=== PATIENT | male | born 1950 | race Caucasian/White ===

== ENCOUNTER → 2020-08-27 13:49 | Outpatient (BNVA) | payer OTHER, SELFPAY | PROVIDERS: Family Provider Family Medicine; PCP Emergency Medicine Emergency Medical Services; Referring Provider Emergency Medicine Emergency Medical Services; Visit Provider Specialist | DX: M25.511 Pain in right shoulder (principal) | CPT/HCPCS: 73030 ==

== ENCOUNTER 2021-05-05 12:34 | Observation (INO) | payer OTHER, MEDICARE, SELFPAY ==
[2021-05-05 13:41] VITALS: BP 123/81; PULSE 89; RESP 18; TEMP 37.1; O2SAT 98; BMI 37.5
--- NOTE | 2021-05-05 14:09 | W.ED.NEUROSD ---
HPI - Neuro Symptoms/Deficit General: Chief Complaint: Neuro Symptoms/Deficit Stated Complaint: STROKE LIKE SYMPTOMS/ EXPRESSIVE APHASIA Time Seen by Provider: 05/05/21 13:04 History of Present Illness: HPI Narrative: 7-year-old male was transferred here from [facility]. He had presented there with expressive aphasia. He was evaluated by CT CT of the head and neck there is no acute findings noted he gone to bed the night before around 8 PM woke up at 5 AM with the expressive aphasia improved shortly after presented there. Neuro consult by [place] consultation recommended hospitalization for further evaluation for his stroke there is an incidental finding of a mediastinal mass. The difficult time securing an appropriate hospital bed and ultimately contacted our facility we have excepted the patient for admission. Records did accompany him and were reviewed labs and imaging was not repeated was reviewed in the chart. [place] per the radiologist recommendation the patient was given 325 mg of aspirin and 300 mg of Plavix as a loading doses. Onset (ago): hour(s) Last Observed Normal: 22:00 Timing confirmed by: family member Location: speech History of same: No Severity: moderate Relieving factors: none Exacerbating factors: none Context: sudden onset (Patient awoke with symptoms) Associated symptoms: Deny chest pain, cough, diaphoresis, fevers/chills, headache(s), anorexia, malaise, nausea, seizures, short of breath, syncope, tingling, vertigo, vomiting or weakness Treatments Prior to Arrival: Aspirin (325 mg) and other medication (Plavix 300) Review of Systems Const: Denies: malaise or diaphoresis ENMT: Denies: throat pain, ear or mastoid pain, nasal discharge or nasal congestion Card: Denies: chest pain or syncope Resp: Denies: dyspnea, productive cough or non-productive cough GI: Denies: nausea or vomiting : Denies: flank pain, dysuria, urinary frequency or urinary urgency Skin/Breast: Denies: rash or pruritus Neuro: Denies: headache(s) or vertigo PFSH ED PFSH: Social History Smoking and tobacco status: never smoked NIH stroke score NIHSS: Level Of Consciousness - 1a: 0 Level Of Consciousness Questions - 1b: Both Correct Level Of Consciousness Commands - 1c: Both Correct Best Gaze - 2: Normal Visual Pratt - 3: No Visual Loss Facial Palsy - 4: Normal Motor Arm Right - 5: No Drift Motor Arm Left - 5: No Drift Motor Leg Right - 6: No Drift Motor Leg Left - 6: No Drift Limb Ataxia - 7: Absent Sensory - 8: Normal Best Language - 9: Mild/Moderate Aphasia (Expressive) Dysarthia - 10: Normal Extinction And Inattention - 11: 0 Score: Total Score: 1 Physical Exam Const: COMMON NORMALS: no acute distress GENERAL APPEARANCE: cooperative and comfortable ORIENTATION/CONSCIOUSNESS: Yes awake, Yes oriented to person, Yes oriented to place and Yes oriented to time HENMT: COMMON NORMALS: normocephalic, atraumatic and hearing grossly normal bilaterally HEAD & SCALP: normocephalic and atraumatic Neck/C-Spine: COMMON NORMALS: no JVD Resp: COMMON NORMALS: normal respiratory effort, No retractions, No use of accessory muscles and clear to auscultation bilaterally AUSCULTATION: clear to auscultation bilaterally Cardio: COMMON NORMALS: no JVD, regular rate, regular rhythm and No murmurs present (Cardio) RATE: regular rate RHYTHM: regular rhythm GI: COMMON NORMALS: Soft to palpation and No hepatosplenomegaly present AUSCULTATION: Yes normoactive bowel sounds PALPATION: Yes Soft to palpation, No Tenderness to palpation present (GI), No Guarding due to palpation present (GI) and Yes No hepatosplenomegaly present Extremity: COMMON NORMALS: normal to inspection, capillary refill normal, no clubbing, cyanosis or edema, no calf tenderness and no pedal edema Neuro: SENSORIUM/ORIENTATION: Yes oriented to person, Yes oriented to place and Yes oriented to time Skin: COMMON NORMALS: no rashes or lesions noted GENERAL SKIN EXAM: no rashes or lesions noted Course Vital Signs: Vital signs: Vital Signs Temperature 98.7 F 05/05/21 13:41 Pulse Rate 89 05/05/21 13:41 Respiratory Rate 18 05/05/21 13:41 Blood Pressure 123/81 05/05/21 13:41 Pulse Oximetry 98 05/05/21 13:41 MDM - Neuro Symptoms/Deficit MDM Narrative: Medical decision making narrative: Labs and imaging reviewed from outside facility. Discussed Dr. Newberry will admit. Discharge Plan Discharge Patient Disposition: Admitted As Inpatient Clinical Impression: Cerebrovascular accident, Mass of mediastinum Condition: Stable Coding Level of Care Code ED Fabric Finisher for Katarina Cervantes
[2021-05-05 17:00] VITALS: BP 134/79; PULSE 74; RESP 18; O2SAT 98
--- NOTE | 2021-05-05 18:00 | P.HP_ITS ---
Providers/Chief Complaint Admitting Physician: Carmleo Newberry MD Primary Care Provider: Ray Haywood DO Chief Complaint: STROKE LIKE SYMPTOMS/ EXPRESSIVE APHASIA History of Present Illness Tomy Zeng is a 70 year old male with past medical history of hypertension, coronary artery disease status post SC was transferred here from [facility]. He had presented there with expressive aphasia.He has gone to bed the night before around 8 PM woke up at 5 AM with the expressive aphasia. CT head without contrast: No acute intracranial pathology CT of the head and neck: No acute findings. Neuro consult by the [place] physician recommended hospitalization for further evaluation for his stroke. There is an incidental finding of a mediastinal mass. He received 325 mg of aspirin and 300 mg of Plavix at [facility].He was transferred to our facility for further work-up as there was no bed available. Review of Systems Const: Denies: fever(s), chills, body aches, change in appetite or diaphoresis Card: Denies: palpitations, edema, swelling of feet/ankles, dyspnea on exertion, orthopnea or leg pain with exertion Resp: Denies: dyspnea, productive cough, wheezing or pain on inspiration GI: Denies: abdominal pain, nausea, vomiting, diarrhea or constipation : Denies: flank pain or difficulty urinating Musc: Denies: back pain, extremity pain or extremity swelling Neuro: Denies: difficulty walking or confusion Medications/Allergies Home Medications Medication Instructions Recorded Confirmed Last Taken Type aspirin 81 mg tablet,delayed 81 mg PO QAM 08/27/20 05/05/21 Unknown History release lisinopril 10 mg PO QAM 05/05/21 05/05/21 Unknown History Allergies Allergy/AdvReac Type Severity Reaction Status Date / Time Penicillins Allergy hives Verified 05/05/21 13:49 PFSH Acute PFSH: Social History Smoking and tobacco status: never smoked Vitals/I&O/Wt Last Vital Signs Temp 98.7 F 05/05/21 13:41 Pulse 89 05/05/21 13:41 Resp 18 05/05/21 13:41 BP 123/81 05/05/21 13:41 Pulse Ox 98 05/05/21 13:41 Weight last 48 hrs Weight 122.016 kg Physical Exam Const: COMMON NORMALS: patient oriented x3 HENMT: COMMON NORMALS: normocephalic and atraumatic HEAD & SCALP: normocephalic and atraumatic Resp: COMMON NORMALS: clear to auscultation bilaterally AUSCULTATION: clear to auscultation bilaterally Cardio: COMMON NORMALS: regular rate, regular rhythm, S1 normal heart sound present, S2 normal heart sound present, No gallops present (Cardio), No murmurs present (Cardio), No rub (Cardio) and Peripheral pulses 2+ throughout RATE: regular rate RHYTHM: regular rhythm HEART SOUNDS: S1 normal heart sound present and S2 normal heart sound present PERIPHERAL PULSES: Peripheral pulses 2+ throughout GI: COMMON NORMALS: Normal to inspection, nondistended, normoactive bowel sounds present, Soft to palpation, non-tender, No hepatosplenomegaly present and no masses AUSCULTATION: Yes normoactive bowel sounds PALPATION: Yes Soft to palpation and Yes No hepatosplenomegaly present RECTAL EXAM: Yes deferred Extremity: COMMON NORMALS: no clubbing, cyanosis or edema and no pedal edema Neuro: COMMON NORMALS: patient oriented x3 A&P Assessment and plan (1) Cerebrovascular accident: Status: Acute (2) Mass of mediastinum: Status: Acute (3) Hypertension: Status: Acute Additional A&P Information Tomy Zeng is a 70 year old male with past medical history of hypertension, coronary artery disease status post SC was transferred here from [facility]. He had presented there with expressive aphasia.He has gone to bed the night before around 8 PM woke up at 5 AM with the expressive aphasia. CT head without contrast: No acute intracranial pathology CT of the head and neck: No acute findings. Acute CVA: With expressive aphasia Neuro check Fall precaution Telemetry monitoring 2D echo MRI head without contrast Continue aspirin Plavix and statin Permissive hypertension Possible event monitor as an outpatient #Mediastinal mass: Patient denies any smoking history. Follow-up as an outpatient with pulmonary medicine #History of coronary artery disease status post SC: Currently denies any chest pain palpitation shortness of breath. Continue aspirin, Plavix and statin Attestations Medical Necessity Statement*: Patient needs to be in hospital for management o f acute CVA. Coding Level of Care Code Acute Licensed Social Worker for [facility] Diagnoses Cerebrovascular accident I63.9 Mass of mediastinum J98.59 Hypertension I10
[2021-05-05 18:22] VITALS: BMI 37.5
[2021-05-05] MEDS: sodium chloride 0.9% 1,000 ML 100 ML IV (18:35)
[2021-05-05] MEDS: acetaminophen 325 mg Tablet 650 MG PO (18:35)
[2021-05-05] MEDS: aspirin 81 mg EC Tablet PO (18:35)
[2021-05-05] MEDS: clopidogrel 75 mg Tablet PO (18:35)
[2021-05-05 19:27] LABS: Basophils % 0.4 %; Eosinophils # 0.1 10^3/uL (0.0-0.8); Eosinophils % 0.5 %; Hematocrit 46.1 % (42.0-52.0); Hemoglobin 14.3 g/dL (11.7-16.6); Lymphocytes # 2.8 10^3/uL (0.8-4.8); Lymphocytes % 25.3 %; Mean Corpuscular Hemoglobin 28.1 pg (28.0-34.0); Mean Corpuscular Volume 90.7 fl (80-94); Mean Platelet Volume 10.4 fL (7.4-10.4); Monocytes # 0.6 10^3/uL (0.2-0.9); Monocytes % 5.9 %; Neutrophils % 67.6 %; Nucleated Red Blood Cells % 0 %; Platelet Count 279 10^3/cmm (130-400); Red Blood Count 5.08 10^6/uL (4.1-5.3); Red Cell Distribution Width 13.7 % (12.1-15.1); White Blood Count 10.9 10^3/uL (4.0-10.0)
--- NOTE | 2021-05-05 19:57 | PC.NURSE ---
Shift report received from Roberta ARIAS. Patient in bed/resting. No s/s of pain or discomfort. IV patent /infusing NS at 100mL/hr. No needs noted at this time.
[2021-05-05 20:00] VITALS: BP 116/65; PULSE 86; RESP 17; TEMP 36.6; O2SAT 96
[2021-05-05] MEDS: atorvastatin 40 mg Tablet PO (22:30)
[2021-05-06] VITALS: BP 96/59; PULSE 88; RESP 19; TEMP 36.6; O2SAT 96
[2021-05-06 04:00] VITALS: BP 134/65; PULSE 70; RESP 18; TEMP 36.6; O2SAT 93
[2021-05-06 04:18] LABS: Basophils % 0.3 %; Eosinophils # 0.1 10^3/uL (0.0-0.8); Eosinophils % 1.1 %; Hematocrit 42.9 % (42.0-52.0); Hemoglobin 13.6 g/dL (11.7-16.6); Lymphocytes # 2.8 10^3/uL (0.8-4.8); Lymphocytes % 28.7 %; Mean Corpuscular HGB Conc 31.7 g/dL (30.0-36.0); Mean Corpuscular Hemoglobin 28.3 pg (28.0-34.0); Mean Corpuscular Volume 89.2 fl (80-94); Mean Platelet Volume 10.1 fL (7.4-10.4); Monocytes # 0.8 10^3/uL (0.2-0.9); Monocytes % 7.8 %; Neutrophils # 6.01 10^3/uL (1.8-7.7); Neutrophils % 61.7 %; Nucleated Red Blood Cells % 0 %; Platelet Count 277 10^3/cmm (130-400); Red Blood Count 4.81 10^6/uL (4.1-5.3); Red Cell Distribution Width 14.1 % (12.1-15.1); White Blood Count 9.8 10^3/uL (4.0-10.0)
[2021-05-06 04:35] LABS: INR 1.11 (0.8-1.2)
[2021-05-06 04:36] LABS: Partial Thromboplastin Time 37.2 SECONDS (23.9-36.7)
--- NOTE | 2021-05-06 04:46 | PC.NURSE ---
Telemetry monitoring applied at this time.
[2021-05-06 04:48] LABS: Alanine Aminotransferase 23 U/L (0-41); Albumin Level 3.8 g/dL (3.5-5.2); Alkaline Phosphatase 66 IU/L (40-130); Anion Gap 17.6 (5-19); Aspartate Amino Transferase 15 U/L (0-40); Blood Urea Nitrogen 10 mg/dL (8-23); Calcium 8.8 mg/dL (8.5-10.5); Carbon Dioxide 22 mmol/L (22-29); Chloride 103 mmol/L (98-107); Globulin 2.6 g/dL (1.3-4.6); Glomerular Filtration Rate 111.5 mL/min (90-130); Glucose 127 mg/dL (65-115); Osmolality Calculated 287 mOsm/kg (285-295); Potassium 4.6 mmol/L (3.5-5.1); Sodium 138 mmol/L (136-145); Thyroid Stimulating Hormone 0.95 uIU/mL (0.27-4.20); Total Bilirubin 0.4 mg/dL (0.15-1.2); Total Protein 6.4 g/dL (6.6-8.7)
[2021-05-06] MEDS: sodium chloride 0.9% 1,000 ML 100 ML IV (06:00)
[2021-05-06] MEDS: aspirin 81 mg EC Tablet PO (08:38)
[2021-05-06] MEDS: clopidogrel 75 mg Tablet PO (08:38)
--- NOTE | 2021-05-06 10:11 | PC.CHAP ---
Pastoral Care Encounter/Spiritual Assessment Type of Contact [] Declined branch assistant visit [] Patient/Family/Request visit [] Outpatient visit [] Follow-up visit [] Physician referral [] Code/Alert [x] Routine visit [] Staff referral [] Actively dying [] Patient sleeping [] Family support [] [] Out of room [] Palliative care [] [] Receiving care in room [] Pre-surgical visit [] Trauma [] Long length of stay [] ICU visit [] Other: Relational/Emotional Strength [x] Patient feels connected with others/family/visitors/staff [] Distress [] Loneliness/isolation [] Abandonment Spirituality of Patient [x] Person of Leanne [x] Attends Sikhism of their Leanne [x] Believes in Prayer [] Reads Bible or Episcopalian materials [] There are Spiritual issues to be addressed Payroll Accounting Manager Interventions [x] Prayer x[] Active listening [x] Non-anxious presence [] Spiritual/emotional support [] Crisis/trauma care [] Spiritual counseling [] Bereavement support [] Provided bereavement packet [] Provided Bible/devotional materials [] Provided toy/stuffed animal, coloring book to patient or family member [] Provided Communion [] Anointing/[place] [] Salvation [x] Completed spiritual assessment [] Other: Impact on Illness or Injury [] Angry [] Fearful [] Anxious [] Often cries [] Exhaustion [] Unable to work [] Unable to attend protestant [] Unable to walk/stand [] Unable to read [] Unable to drive [] Unable to eat/drink [] Unable to sleep [] Unable to be with family [] Patient intubated [] Other: Summary Time spent with patient
--- NOTE | 2021-05-06 11:12 | P.DS_ITS ---
Discharge Providers Date of Admission: 05/05/21 15:54 Date of Discharge: May 06, 2021 Attending Provider at Admission: Carmelo Newberry MD Attending Provider at Discharge: Carmelo Newberry MD Primary Care Provider: Ray Haywood DO Diagnoses at Discharge Discharge Diagnosis (1) Cerebrovascular accident: Status: Acute (2) Mass of mediastinum: Status: Acute (3) Hypertension: Status: Acute Reason for Visit Reason for Visit: STROKE LIKE SYMPTOMS/ EXPRESSIVE APHASIA Hospital Course Hospital Course 70 year old male with past medical history of hypertension, coronary artery d isease status post MD was transferred here from [facility]. He had presented there with expressive aphasia.He has gone to bed the night before around 8 PM woke up at 5 AM with the expressive aphasia. CT head without contrast: No acute intracranial pathology CT of the head and neck: No acute findings. Neuro consult by the [place] physician recommended hospitalization for further evaluation for his stroke. There is an incidental finding of a mediastinal mass. He received 325 mg of aspirin and 300 mg of Plavix at [facility].He was transferred to our facility for further work-up as there was no bed available. He was admitted for the management of acute CVA: He was kept on a stroke protocol: Telemetry monitoring was done: No significant arrhythmia was noted, 2D echo was done: Prelim report :normal LVEF, no gross valvular abnormality, no LV size cavity, final report awaited. Permissive hypertension, neuro check, fall precautions was done, patient expressive aphasia was improving, denied any weakness in any body part, no difficulty swallowing, denied any abnormal sensations, denied any bowel bladder problems. He was continued on aspirin Plavix statin, patient will be scheduled for outpatient event monitor for 2 weeks, to rule out any underlying cardiac arrhythmia, report of which will be sent to the primary care physician. Incidental finding of mediastinal mass on imaging study patient denies any smoking history. He will follow Dr. Dr. Canseco as an outpatient for further work-up Patient responded well to above medical management and is being discharged in stable condition to home. Physical Exam Const: COMMON NORMALS: patient oriented x3 HENMT: COMMON NORMALS: normocephalic and atraumatic HEAD & SCALP: normocephalic and atraumatic Resp: COMMON NORMALS: clear to auscultation bilaterally AUSCULTATION: clear to auscultation bilaterally Cardio: COMMON NORMALS: regular rate, regular rhythm, S1 normal heart sound present, S2 normal heart sound present, No gallops present (Cardio), No murmurs present (Cardio), No rub (Cardio) and Peripheral pulses 2+ throughout RATE: regular rate RHYTHM: regular rhythm HEART SOUNDS: S1 normal heart sound present and S2 normal heart sound present PERIPHERAL PULSES: Peripheral pulses 2+ throughout GI: COMMON NORMALS: Normal to inspection, nondistended, normoactive bowel sounds present, Soft to palpation, non-tender, No hepatosplenomegaly present and no masses AUSCULTATION: Yes normoactive bowel sounds PALPATION: Yes Soft to palpation and Yes No hepatosplenomegaly present RECTAL EXAM: Yes deferred Extremity: COMMON NORMALS: no clubbing, cyanosis or edema and no pedal edema Neuro: COMMON NORMALS: patient oriented x3 Discharge Data Data Completed and Pending: Pending at discharge Category Date Time Status Complete Blood Co unt w/Auto AM LABS Lab 05/07/21 04:00 Ordered Complete Blood Co unt w/Auto AM LABS Lab 05/08/21 04:00 Ordered Comprehensive Met abolic Panel AM LA BS Lab 05/07/21 04:00 Ordered Comprehensive Met abolic Panel AM LA BS Lab 05/08/21 04:00 Ordered MR head wo con* [id number] Routine MRI 05/06/21 10:15 Ordered CV. echo complete * [id number] Routine Ultrasound 05/06/21 18:00 Taken Labs from last 24 hours 05/06/21 05/06/21 05/06/21 04:00 04:00 04:00 WBC 9.8 RBC 4.81 Hgb 13.6 Hct 42.9 MCV 89.2 MCH 28.3 MCHC 31.7 RDW 14.1 Plt Count 277 MPV 10.1 Neut % (Auto) 61.7 Lymph % (Auto) 28.7 [place] % (Auto) 7.8 Eos % (Auto) 1.1 Baso % (Auto) 0.3 Neut # (Auto) 6.01 Lymph # (Auto) 2.8 [place] # (Auto) 0.8 Eos # (Auto) 0.1 Baso # (Auto) 0.0 Nucleated RBC % (a uto) 0 Nucleated RBCs # 0.0 PT 14.60 INR 1.11 APTT 37.2 H Sodium 138 Potassium 4.6 Chloride 103 Carbon Dioxide 22 Anion Gap 17.6 BUN 10 Creatinine 0.7 GFR Calculation 111.5 Glucose 127 H Calculated Osmolal ity 287 Calcium 8.8 Total Bilirubin 0.4 AST 15 ALT 23 Alkaline Phosphata se 66 Total Protein 6.4 L Albumin 3.8 Globulin 2.6 TSH 0.95 05/05/21 19:13 WBC 10.9 H RBC 5.08 Hgb 14.3 Hct 46.1 MCV 90.7 MCH 28.1 MCHC 31.0 RDW 13.7 Plt Count 279 MPV 10.4 Neut % (Auto) 67.6 Lymph % (Auto) 25.3 [place] % (Auto) 5.9 Eos % (Auto) 0.5 Baso % (Auto) 0.4 Neut # (Auto) 7.40 Lymph # (Auto) 2.8 Lab[place] # (Auto) 0.6 Eos # (Auto) 0.1 Baso # (Auto) 0.0 Nucleated RBC % (a uto) 0 Nucleated RBCs # 0.0 PT INR APTT Sodium Potassium Chloride Carbon Dioxide Anion Gap BUN Creatinine GFR Calculation Glucose Calculated Osmolal ity Calcium Total Bilirubin AST ALT Alkaline Phosphata se Total Protein Albumin Globulin TSH Vitals: Last Vital Signs Temp 97.9 F 05/06/21 04:00 Pulse 70 05/06/21 04:00 Resp 18 05/06/21 04:00 BP 134/65 05/06/21 04:00 Pulse Ox 93 05/06/21 04:00 Discharge Plan Discharge Patient Disposition: Home Condition: Stable Prescriptions: New atorvastatin 40 mg Tablet 40 mg PO BEDTIME 30 Days Qty: 30 RF: 3 clopidogrel 75 mg Tablet 75 mg PO DAILY 30 Days Qty: 30 RF: 3 aspirin 81 mg Tablet,Delayed Release (Dr/Ec) 81 mg PO DAILY 30 Days Qty: 30 RF: 3 Continued lisinopril 20 mg Tablet 10 mg PO QAM RF: 0 Discontinued aspirin 81 mg tablet,delayed release (DR/EC) 81 mg PO QAM RF: 0 Discharge Orders: Discharge Order (Routine); Ordered 05/06/21 Ordered By: Carmelo Newberry Other Ambulatory Orders: [place] cardiac event monitor (Routine) Timeframe: 1 Week Facility: [facility] - Location: Cardiac Diagnostic Laboratory Ordered By: Carmelo Newberry Referrals: SujatarAlireza MD [Physician] - 1 week (HIS OFFICE WILL CALL WITH APPOINTMENT) Yobany,Ray D, DO [Primary Care Provider] - 05/13/21 10:30 am Discharge Diet: Regular Discharge Activity: Resume usual activity Patient Instructions: Aspirin (By mouth), Atorvastatin (By mouth), Clopidogrel (By mouth), Stroke (GEN), Opioid Safety, Stroke Stoplight Activity Restrictions/Additional Instructions: PLEASE CALL HEART CARE FOR APPOINTMENT [phone] FOR HEART MONITOR Discharge Attestations Time Spent in Discharge Care*: less than 30 min Specific Discharge Activities: educating patient, educating and/or supporting family/caregiver, discussing with pcp/other providers, discussing with social work case manager/social workers/dc planners, documenting/other paperwork and evaluating patient/reviewing data Quality Metrics Clinical Quality Measures During this hospital stay, did patient experience: None Coding Level of Care Code Acute Chg FW DC note Exam Detailed Diagnoses Cerebrovascular accident I63.9 Mass of mediastinum J98.59 Hypertension I10
[2021-05-06 11:34] VITALS: BP 112/62; PULSE 74; RESP 16; TEMP 36.6; O2SAT 96
[2021-05-06 14:00] VITALS: PULSE 94
[2021-05-06 15:47] VITALS: BP 112/62; PULSE 74; RESP 16; TEMP 36.6; O2SAT 96
--- NOTE | 2021-05-06 18:00 | USCV_ITS ---
Tomy Zeng Age: 70 Gender: M : 1950 Exam Date: 05/06/2021 09:29 Ordering Phys: Carmelo Newberry MD Technologist: Exam Location: [facility] – [place] Indication: TIA BP: 135 / 65 HR: 73 Rhythm: Sinus Technical Quality: Adequate MEASUREMENTS (Male / Female) Normal Values 2D ECHO LV Diastolic Diameter PLAX 3.8 cm 4.2 - 5.9 / 3.9 - 5.3 cm LV Systolic Diameter PLAX 2.1 cm IVS Diastolic Thickness 0.9 cm 0.6 - 1.0 / 0.6 - 0.9 cm IVS Systolic Thickness 1.2 cm LVPW Diastolic Thickness 1.3 cm 0.6 - 1.0 / 0.6 - 0.9 cm LVPW Systolic Thickness 1.1 cm LVOT Diameter 2.0 cm LV Ejection Fraction 2D Teich 75.3 % LV Ejection Fraction MOD 2C 56.7 % LV Ejection Fraction 2C AL 55.2 % LA Diameter 4.3 cm LA Width 3.6 cm LA Height 5.1 cm RA Width 3.2 cm RA Height 5.7 cm Aorta at Sinotubular Diameter 3.0 cm M-MODE Aortic Annulus Diameter 3.8 cm LA Ao Ratio MM 1.3 MV E Point Septal Separation 0.8 cm DOPPLER AV Peak Velocity 151.0 cm/s LVOT Peak Velocity 98.0 cm/s AV Area Cont Eq vti 1.9 cm squared AV Area Cont Eq pk 2.1 cm squared MV Area PHT 5.0 cm squared Mitral E to A Ratio 0.8 MV E' Velocity 35.0 cm/s Mitral E to MV E' Ratio 4.9 Mitral E to LV E' Lateral Ratio 4.0 Mitral E to LV E' Septal Ratio 6.5 TR Peak Velocity 340.0 cm/s TR Peak Gradient 46.2 mmHg TV Peak E Velocity 87.0 cm/s Right Atrial Pressure 3.0 mmHg Pulmonary Artery Systolic Pressu 49.2 mmHg FINDINGS Left Ventricle Normal left ventricular cavity size. Normal left ventricular systolic function. No regional wall motion abnormalities. Left ventricular ejection fraction is estimated at 55 %. Grade I/IV diastolic dysfunction (abnormal relaxation filling pattern), normal to mildly elevated filling pressures. Right Ventricle Moderately increased right ventricular size. Moderate pulmonary hypertension, RVSP 49.2 mmHg. Right Atrium Moderately increased right atrial size. Left Atrium The left atrium is normal in size. Mitral Valve Structurally normal mitral valve without significant stenosis or prolapse. There is no mitral regurgitation. Aortic Valve Moderate aortic valve calcification. No aortic valve stenosis. No aortic valve regurgitation. Tricuspid Valve Structurally normal tricuspid valve without significant stenosis or regurgitation. Pulmonic Valve Structurally normal pulmonic valve without significant stenosis. There is no pulmonic regurgitation. Pericardium Normal pericardium without effusion. Aorta Normal ascending aorta dimension. CONCLUSIONS 1-Normal left ventricular cavity size. Normal left ventricular systolic function. No regional wall motion abnormalities. Left ventricular ejection fraction is estimated at 55 %. Grade I/IV diastolic dysfunction (abnormal relaxation filling pattern), normal to mildly elevated filling pressures. 2-Moderately increased right atrial size. 3-Moderately increased right ventricular size. Moderate pulmonary hypertension, RVSP 49.2 mmHg. 4-There is no pericardial effusion. 5-There are no prior echocardiogram studies to compare. Ling Warner MD (Electronically Signed) Final Date: 06 May 2021 23:20 S
== END 2021-05-06 15:50 | disposition home or self-care (01) ==
LOC: ER 14:16 → MEDSURG 17:33
PROVIDERS: Admitting Provider Internal Medicine; Emergency Provider Family Medicine; PCP Emergency Medicine Emergency Medical Services; Visit Provider Internal Medicine
DX: I63.9 Cerebral infarction, unspecified (principal); J98.59 Other diseases of mediastinum, not elsewhere classified; I10 Essential (primary) hypertension; I25.10 Atherosclerotic heart disease of native coronary artery without angina pectoris; I25.2 Old myocardial infarction; Z79.82 Long term (current) use of aspirin; Z88.0 Allergy status to penicillin
CPT/HCPCS: 36415; 80053; 84443; 85025; 85610; 85730; 93306; 96360; 96361; 97161; 99285; G0378; J7030